=== PATIENT | female | born 1990 | race African-American/Black ===

== ENCOUNTER 2017-02-27 18:16 | Emergency (ER) | payer MEDICAID ==
[~2017-02-27] VITALS: Ht 170.2 cm; Wt 68.0 kg
[2017-02-27] MEDS ORDERED: IBUPROFEN 600MG TABLET PO ONE (19:45)
[2017-02-27 20:00] VITALS: BP 118/84
== END 2017-02-27 20:15 | disposition home or self-care (01) ==
LOC: ER 19:34
DX: N93.8 Other specified abnormal uterine and vaginal bleeding (principal)
CPT/HCPCS: 81025; 99283; Z7610

== ENCOUNTER 2025-04-22 07:14 | Inpatient (IN) | payer MEDICAID, MEDICARE ==
[~2025-04-22] VITALS: Ht 167.6 cm; Wt 77.6 kg
[2025-04-22 07:22] VITALS: O2SAT 100
[2025-04-22 07:55] LABS: BASOPHILS % 0.2 % (0.0-2.0); EOSINOPHILS % 0.6 % (0.0-5.0); HEMATOCRIT. 41.8 % (36.0-48.0); HEMOGLOBIN. 14.1 g/dL (12.0-16.0); LYMPHOCYTES % 27.5 % (20.0-50.0); MEAN PLATELET VOLUME 8.2 fl (7.4-10.4); MONOCYTES % 7.5 % (2.0-8.0); NEUTROPHILS % 64.2 % (40.0-76.0); PLATELET 207 x1000/uL (130-400); RED BLOOD CELL COUNT 4.33 mill/uL (4.2-5.4); RED CELL DISTRIBUTION WIDTH 13.4 % (11.6-14.6)
[2025-04-22 07:59] LABS: CREATININE 0.8 mg/dL (0.6-1.0)
[2025-04-22 08:00] LABS: UREA NITROGEN BLOOD < 5 mg/dL (9-23)
[2025-04-22] MEDS: SODIUM CHLORIDE 0.9% 500 ML IV NR (08:41)
[2025-04-22] MEDS: MORPHINE SULFATE 4 MG/ML INJ (FOR IV/IM USE) IM NR (08:45)
[2025-04-22] MEDS: PANTOPRAZOLE SODIUM 40 MG/VIAL IV NR (08:45)
[2025-04-22] MEDS: ONDANSETRON HCL 4MG/2ML INJ IV NR (08:45)
[2025-04-22] MEDS ORDERED: LORAZEPAM 2MG/ML UD SYRINGE IV PRN (11:00)
[2025-04-22] MEDS ORDERED: IPRATROPIUM/ALBUTEROL 0.5-3(2.5)MG/3ML NEB HHN PRN (11:00)
[2025-04-22] MEDS ORDERED: NALOXONE HCL 0.4MG/ML VIAL IV PRN (11:15)
[2025-04-22 12:00] VITALS: BP 184/108; PULSE 73; RESP 18; TEMP 36.8; O2SAT 100
[2025-04-22] MEDS: CLONIDINE 0.1MG TABLET PO PRN (12:50)
[2025-04-22] MEDS: MORPHINE SULFATE 4 MG/ML INJ (FOR IV/IM USE) IV PRN (12:51)
[2025-04-22] MEDS: ONDANSETRON HCL 4MG/2ML INJ IV PRN (12:51)
[2025-04-22] MEDS: MVI, ADULT NO.1 10 ML, FOLIC ACID 1 MG, THIAMINE HCL 100 MG in SODIUM CHLORIDE 0.9% 1,0... IV ONE (13:00)
[2025-04-22] MEDS: KCL 20MEQ/100ML PREMIX 100 ML IV SCH (14:44)
[2025-04-22 15:39] VITALS: BP 138/61; PULSE 62; RESP 16; TEMP 37.1; O2SAT 99
[2025-04-22 18:35] VITALS: BP 138/91; PULSE 62; RESP 16; TEMP 36.3624
[2025-04-22 20:00] VITALS: BP 135/97; PULSE 61; RESP 18; TEMP 36.3; O2SAT 98
[2025-04-22 22:26] LABS: TRIGLYCERIDE 84.0 mg/dL (0-150)
[2025-04-22 22:27] LABS: CREATININE 0.6 mg/dL (0.6-1.0); LDL CHOLESTEROL 29.0 mg/dL (5-100); UREA NITROGEN BLOOD < 5 mg/dL (9-23)
[2025-04-22 22:28] LABS: TROPONIN I HIGH SENSITIVITY < 4 ng/L (3.0-34)
[2025-04-22 23:02] LABS: HEPATITIS C AB NON REACTIVE (Neg) (Negative)
[2025-04-23] VITALS: BP 146/95; PULSE 69; RESP 18; TEMP 36.4; O2SAT 99
[2025-04-23 04:00] VITALS: BP 150/101; PULSE 64; RESP 18; TEMP 36.4; O2SAT 100
[2025-04-23 06:50] LABS: TROPONIN I HIGH SENSITIVITY < 4 ng/L (3.0-34)
[2025-04-23 06:52] LABS: CREATININE 0.6 mg/dL (0.6-1.0); UREA NITROGEN BLOOD < 5 mg/dL (9-23)
[2025-04-23 06:53] LABS: T4 FREE 1.22 ng/dL (0.89-1.76)
[2025-04-23 06:54] LABS: ASPARTATE AMINOTRANSFERASE 17 IU/L (<34); BILIRUBIN DIRECT 0.4 mg/dL (<=3.0); BILIRUBIN TOTAL 1.0 mg/dL (0.1-1.0); PROTEIN TOTAL 7.3 g/dL (6.0-8.3)
[2025-04-23 08:00] VITALS: BP 117/86; PULSE 63; RESP 16; TEMP 36.5; O2SAT 100
[2025-04-23 09:31] LABS: CLARITY URINE CLEAR (CLEAR); COLOR URINE YELLOW (YELLOW); GLUCOSE URINE NEGATIVE (NEGATIVE); KETONES URINE 4+ (NEGATIVE); LEUKOCYTE ESTERASE URINE NEGATIVE (NEGATIVE); NITRITE URINE POSITIVE (NEGATIVE); OCCULT BLOOD URINE 2+ (NEGATIVE); PH URINE 6.0 (4.5-8.0); PROTEIN URINE 1+ (NEGATIVE); SPECIFIC GRAVITY URINE 1.016 (1.005-1.030); UROBILINOGEN URINE 1.0 E.U./dL (0.2-1.0)
[2025-04-23 09:36] LABS: UCG KIT EXPIRATION DATE 02/12/2027; UCG KIT LOT# 0000970990; UCG SCREEN NEGATIVE
[2025-04-23 09:41] LABS: SQUAMOUS EPITHELIAL CELL URINE 2+ /lpf (RARE/1+)
[2025-04-23 09:42] LABS: BACTERIA URINE 4+; RBC URINE 0-2 /hpf (0-2); WBC URINE 0-2 /hpf (0-2)
[2025-04-23 09:43] LABS: TRICHOMONAS URINE RARE
[2025-04-23 09:52] LABS: *AMPHETAMINES SCREEN URINE NEGATIVE (NEGATIVE); *BARBITURATES SCREEN URINE NEGATIVE (NEGATIVE); *BENZODIAZEPINES SCREEN URINE NEGATIVE (NEGATIVE); *COCAINE SCREEN URINE NEGATIVE (NEGATIVE); CANNABINOID URINE SCREEN NEGATIVE (NEGATIVE); METHADONE URINE SCREEN NEGATIVE (NEGATIVE); OPIATES URINE SCREEN PRESUMPTIVE POSITIVE (NEGATIVE); PHENCYCLIDINE URINE SCREEN NEGATIVE (NEGATIVE)
[2025-04-23 09:53] LABS: ECSTASY MDMA SCREEN URINE NEGATIVE (NEGATIVE)
[2025-04-23] MEDS: PANTOPRAZOLE SODIUM 40 MG/VIAL IV SCH (09:59)
[2025-04-23] MEDS: POTASSIUM CHLORIDE 20MEQ/PACKET PO SCH (09:59)
[2025-04-23] MEDS: DEXT 5%/0.9% NACL 1,000 ML IV SCH (10:30)
[2025-04-23 12:00] VITALS: BP 138/95; PULSE 67; RESP 18; TEMP 36.3; O2SAT 99
[2025-04-23] MEDS: CEFTRIAXONE 1GM/50ML 50 ML IV ONE (13:02)
[2025-04-23] MEDS: CEFTRIAXONE 1GM/50ML 50 ML IV SCH (13:06)
[2025-04-23 16:00] VITALS: BP 138/99; PULSE 76; RESP 16; TEMP 36.4; O2SAT 98
[2025-04-23 20:00] VITALS: BP 127/82; PULSE 74; RESP 18; TEMP 36.3; O2SAT 100
[2025-04-23] MEDS ORDERED: DEXTROSE 50% WATER 50ML SYRINGE IV PRN (21:30)
[2025-04-24] VITALS: BP 135/108; PULSE 69; RESP 16; TEMP 36.9; O2SAT 99
[2025-04-24 04:00] VITALS: BP 107/74; PULSE 72; RESP 16; TEMP 36.8; O2SAT 98
[2025-04-24] MEDS: BLOOD SUGAR DIAGNOSTIC STRIP TEST SCH (06:17)
[2025-04-24] MEDS: INSULIN LISPRO 100 UNITS/ML SUBCUT SCH (06:24)
[2025-04-24 08:00] VITALS: BP 115/79; PULSE 70; RESP 18; TEMP 36.4; O2SAT 100
[2025-04-24] MEDS ORDERED: SULF1TAB48 MT (09:45)
[2025-04-24 10:08] VITALS: BP 132/78; PULSE 78; RESP 16; TEMP 97.8
== END 2025-04-24 10:46 | disposition home or self-care (01) | DRG 463 ==
LOC: ER 07:14 → 8EST 09:36 → EDBEDREQ 09:41 → EDBEDREQTM 09:41 → ENRESERV 10:23 → 5WST 15:00
PROVIDERS: ADMIT Internal Medicine; ATTEND Internal Medicine
DX: N39.0 Urinary tract infection, site not specified (principal); K85.90 Acute pancreatitis without necrosis or infection, unspecified; E87.6 Hypokalemia; K86.1 Other chronic pancreatitis; Y90.9 Presence of alcohol in blood, level not specified; F10.90 Alcohol use, unspecified, uncomplicated; R03.0 Elevated blood-pressure reading, without diagnosis of hypertension; Z82.49 Family history of ischemic heart disease and other diseases of the circulatory system; Z83.3 Family history of diabetes mellitus; Z87.19 Personal history of other diseases of the digestive system
CPT/HCPCS: 36415; 74176; 80048; 80061; 80076; 80305; 81003; 81025; 82150; 82550; 82962; 83036; 84132; 84439; 84443; 84484; 85025; 86705; 87340; 93005; 96361; 96372; 96375; 99285; A4606; J0696; J1815; J2270; J2405; J2470; J3411; J3480; J3490; J7030; J7042